=== PATIENT | male | born 1965 | race African-American/Black ===

== ENCOUNTER 2016-12-17 06:59 | Day surgery (SDC) | payer MEDICARE ==
[~2016-12-17] VITALS: Ht 175.3 cm; Wt 111.5 kg
[2016-12-17 07:30] VITALS: BP 129/84; PULSE 72; RESP 18; TEMP 97.7; O2SAT 97
[2016-12-17] MEDS ORDERED: CHLORHEXIDINE GLUCONATE 2 % 1 PACK (2 CLOTHS) TOPICAL PRN (07:30)
[2016-12-17] MEDS ORDERED: LACTATED RINGER'S 1000 ML IV PRN (07:30)
[2016-12-17] MEDS ORDERED: INSULIN HUMAN REGULAR 1,000 UNITS/10 ML VIAL SQ PRN (07:30)
[2016-12-17] MEDS ORDERED: POVIDONE IODINE 5% (ANTISEPSIS KIT) 4 APPLICATIONS EACH NARE PRN (07:30)
[2016-12-17] MEDS ORDERED: LORazepam 1 MG TAB SL SCH (07:30)
[2016-12-17] MEDS ORDERED: SODIUM CHLORID 0.9% 500 ML IV PRN (07:30)
[2016-12-17] MEDS ORDERED: SODIUM CHLORID 0.9% 500 ML INJ 500 ML IV SCH (07:30)
[2016-12-17] MEDS ORDERED: METOPROLOL TARTRATE 25 MG TAB PO PRN (07:30)
[2016-12-17 08:00] LABS: AUTOMATED NEUTROPHIL # 10.7 TH/MM3 (1.8-7.7); BASOPHIL % 0.2 % (0.0-2.0); EOSINOPHIL # 0.1 TH/MM3 (0-0.4); EOSINOPHIL % 0.7 % (0.0-4.0); HEMATOCRIT 38.2 % (39.0-51.0); HEMO FLAGS DIFF FINAL; LYMPH % 14.7 % (9.0-44.0); LYMPHOCYTE # 2.1 TH/MM3 (1.0-4.8); MEAN CELL VOLUME 91.3 FL (80.0-100.0); MEAN CORPUSCULAR HEMOGLOBIN 30.2 PG (27.0-34.0); MONO % 8.7 % (0.0-8.0); NEUT % 75.7 % (16.0-70.0); PLATELET COUNT 342 TH/MM3 (150-450); RED BLOOD COUNT 4.18 MIL/MM3 (4.50-5.90); RED CELL DISTRIBUTION WIDTH 14.7 % (11.6-17.2); WHITE BLOOD COUNT 14.2 TH/MM3 (4.0-11.0)
[2016-12-17] MEDS ORDERED: MECL-62 PO (08:10)
[2016-12-17] MEDS ORDERED: PULM90IN INH (08:10)
[2016-12-17] MEDS ORDERED: NITR0.4S SL (08:10)
[2016-12-17] MEDS ORDERED: AMLO5TAB2 PO (08:10)
[2016-12-17] MEDS ORDERED: ALBU1AER5 INH (08:10)
[2016-12-17] MEDS ORDERED: SODI3NEB NEB (08:10)
[2016-12-17] MEDS ORDERED: MONT10TA4 PO (08:10)
[2016-12-17] MEDS ORDERED: OXYB10TA PO (08:10)
[2016-12-17] MEDS ORDERED: VERA1TAB17 PO (08:10)
[2016-12-17] MEDS ORDERED: AZEL137S EACH NARE (08:10)
[2016-12-17] MEDS ORDERED: RANE1000 PO (08:10)
[2016-12-17] MEDS ORDERED: PRED50 PO (08:10)
[2016-12-17] MEDS ORDERED: ISOS30TA3 PO (08:10)
[2016-12-17] MEDS ORDERED: SPIRCAP INH (08:10)
[2016-12-17] MEDS ORDERED: ATOR20TA15 PO (08:10)
[2016-12-17] MEDS ORDERED: METO25TA6 PO (08:10)
[2016-12-17] MEDS ORDERED: VENTAER INH (08:10)
[2016-12-17] MEDS ORDERED: METF750T PO (08:10)
[2016-12-17] MEDS ORDERED: OMEP20TA PO (08:10)
[2016-12-17 08:21] LABS: INTERNATIONAL NORMALIZED RATIO 0.9 RATIO; PROTHROMBIN TIME - PATIENT 10.3 SEC (9.8-11.6)
[2016-12-17 08:29] LABS: BICARBONATE 27.3 MEQ/L (21.0-32.0); POTASSIUM 4.1 MEQ/L (3.5-5.1)
[2016-12-17] MEDS ORDERED: MIDAZOLAM HCL 2 MG/2 ML VIAL IV ONE (12:00)
[2016-12-17] MEDS ORDERED: PROPOFOL 200 MG/20 ML AMP IV ONE (12:00)
[2016-12-17] MEDS ORDERED: HEPARIN-NS/PF INJ 1,000 ML ONE (12:08)
[2016-12-17] MEDS ORDERED: ceFAZolin INJ 1,000 MG VIAL ONE (12:10)
[2016-12-17] MEDS ORDERED: LIDOCAINE HCL 2% 50 ML VIAL ONE (12:10)
[2016-12-17] MEDS ORDERED: VANCOMYCIN HCL 1000 MG VIAL ONE (12:10)
[2016-12-17] MEDS ORDERED: SODIUM CHLOR 0.9% 250 ML INJ 250 ML ONE (12:10)
[2016-12-17] MEDS ORDERED: VANCOMYCIN 500 MG VIAL ONE (12:10)
[2016-12-17] MEDS ORDERED: DO NOT ADM ANY ANTICOAGULANT DRUGS PRN (13:00)
--- NOTE | 2016-12-17 13:14 | CATHPROC ---
[place] [facility] Report Study Information Study Number Admission Scheduled Start Study Start [id number] Dec 17 2016 6:59AM 12/17/2016 Dec 17 2016 8:24AM [place] Service Electrophysiology Study Admit Source Facility Department Other [facility] - Machine Plug Shaper Physician and Clinical Staff Initial Emilia Cordero Sales Representative Cash Registers Idalmis Potter,RT(R) TECH2 Other Anesthesia, RESET MERCHANDISER Recorder Michelle Vásquez,RN Recorder Qing Heath RN Equipment Time Academic Affairs Manager Description Size Mfg Part Number Used/Scraped [id number] 12:18 [employer] PACK, CCL CUSTOM * Used *[id number] 12:18 [employer] PACER PEÑA, LIMB * 2530 *[id number] Used [id number] 12:18 [employer],WARM AIR CCL * Used *[id number] 12:16 [employer] CATHETER, JSN, QUAD FR 5 Used *[id number] 12:16 [employer] CAT[employer], JSN, QUAD FR 5 Used *[id number] 12:16 [employer] CAT[employer], JSN, QUAD FR 5 Used *[id number] 12:16 [employer] CATHETER, JSN, QUAD FR 5 Used *[id number] 12:16 [employer] SHEATH, EPS, FR5 FAST CATH FR 5 Used *[id number] 12:16 [employer] SHE[employer], EPS, FR5 FAST CATH FR 5 Used *[id number] 12:17 [employer] SHE[employer], EPS, FR5 FAST CATH FR 5 Used *[id number] 12:17 [employer], EPS, FR6 FAST CATH FR 6 Used *[id number] History: Allergies Allergy Reaction iodine aspirin soap ibuprofen lactose povidone-iodine onion gluten shellfish derived Medication Medication Total Dose (Bolus/Oral) Medication Total Dosage/Unit 1% XYLOCAINE 20 mL Medications (Bolus/Oral) Medication Time Given Dosage/Unit Administered By Reason 1% XYLOCAINE 12/17/2016 12:37:40 PM 20 mL Emilia Jones 20 mL 1% XYLOCAINE given in lab by Emilia Jones in Right Groin via Subcutaneous. Initial Case Assessment Cardiovascular HR Rhythm NIBP Chest Pain 67 sr 121/82 0 Edema Present Skin color Skin None Normal Warm Dry Neurological State Oriented to time-place- Alert Moves all extremities person Respiration - General Respiration Rate SpO2 (%) (B/min) 18 99 Final Case Assessment Cardiovascular HR Rhythm NIBP Chest Pain 67 SR 105/74 0 Edema Present Skin color Skin None Normal Warm Dry Circulatory - Right Pulses Dorsalis Pedis 2 Scale (0,1,2,3,4,d) Circulatory - Left Pulses Dorsalis Pedis 2 Scale (0,1,2,3,4,d) Neurological State Oriented to time-place- Alert Moves all extremities person Respiration - General Respiration Rate SpO2 (%) (B/min) 18 100 Chronological Log Time Study Chronological Log 12:00:00 Patient arrived via Bed. 12:00:55 Anesthesia at bedside. Assumes care of patient. see records for meds and vitals during proc edure 12:01:00 Patient Name, D.O.B, / Armband Verified By R.N. 12:05:00 Verbal Stimulation=2 Physical Stimulation=2 Airway=2 Respiration=2 TOTAL=8. (0=absent, 1=li mited, 2=present) 12:13:24 Patient has been NPO for More than 6Hrs. 12:13:26 Skin Breakdown- none per patient 12:13:34 Patient Warmer Placed on the Table. 12:13:34 Disposable Defibrillator Pads Placed On Patient. 12:13:37 Jigna Prominences Protected 12:13:53 A # 20 IV was noted in the Antecubital (right). Grade = 0 12:14:01 A # 20 IV was noted in the Antecubital (left). Grade = 0 12:14:12 History and physical on the chart or being dictated. Assessment: Initial Case, HR=67 BPM, Rhythm=sr, VHLT=682/82 mmhg, Chest Pain=0, Edema=None, Col or=Normal, Skin = Warm, Dry 12:14:13 Neurological: State=Alert, Ox3, العلي Respiration: Resp=18 B/min, SpO2=99 % 12:15:51 Table restraints applied according to hospital policy 12:15:54 Bilateral groins prepped with 2% chlorhexidine, and draped after a 3 minute waiting time. 12:27:27 Reference ECG taken Time Out. Correct patient, procedure, procedure equipment, site and side verified with physicia n present. Time 12:34:00 concurred by MD, individual staff and RESET MERCHANDISER. Time Out #2 - Consents verified, patient in correct position, all results are labled and displa yed, safety precautions 12:34:30 taken, antibiotics administered. Time out concurred by MD, individual staff and RESET MERCHANDISER in procedu re 12:35:39 Case Start 12:37:40 20 mL 1% XYLOCAINE given in lab by Emilia Jones in Right Groin via Subcutaneous. 12:37:49 Vascular access was obtained in the Fem Vein (right). 12:37:52 Vascular access was obtained in the Fem Vein (right). 12:37:53 Vascular access was obtained in the Fem Vein (right). 12:37:53 Vascular access was obtained in the Fem Vein (right). 12:37:56 A SHEATH, EPS, FR5 FAST CATH FR 5 was advanced into the Fem Art (right) using the Modified Seldinger technique. 12:38:06 A SHEATH, EPS, FR5 FAST CATH FR 5 was advanced into the Fem Art (right) using the Modified Seldinger technique. 12:38:08 A SHEATH, EPS, FR5 FAST CATH FR 5 was advanced into the Fem Art (right) using the Modified Seldinger technique. 12:38:11 A SHEATH, EPS, FR6 FAST CATH FR 6 was advanced into the Fem Art (right) using the Modified Seldinger technique. A CATHETER, JSN, QUAD FR 5 was advanced vis Fem Vein (right) and placed in the CS. Placement wa s visually 12:42:41 confirmed under fluoroscopy. A CATHETER, JSN, QUAD FR 5 was advanced vis Fem Vein (right) and placed in the HIS. Placement w as visually 12:43:01 confirmed under fluoroscopy. A CATHETER, JSN, QUAD FR 5 was advanced vis Fem Vein (right) and placed in the HRA. Placement w as visually 12:43:04 confirmed under fluoroscopy. A CATHETER, JSN, QUAD FR 5 was advanced vis Fem Vein (right) and placed in the RVA. Placement w as visually 12:43:10 confirmed under fluoroscopy. 13:00:00 Case End 13:02:57 Catheter(s) removed without difficulty 13:03:09 Sheath removed; pressure applied to access site. BY IDALMIS 13:03:12 Sterile dressing applied to site 13:03:13 No case complications noted. 13:03:19 Bedside Report will be given. Assessment: Final Case, HR=67 BPM, Rhythm=SR, EOKZ=969/74 mmhg, Chest Pain=0, Edema=None, Color =Normal, Skin = Warm, Dry Right Pulses: Jerry Ped=2 13:10:02 Left Pulses: Jerry Ped=2 Neurological: State=Alert, Ox3, العلي Respiration: Resp=18 B/min, NbE8=660 % 13:12:28 DOCU called. Spoke to DREW 13:45:54 EP STUDY IN PROGRESS End Study - Contrast Media Used In Study Contrast Total Opened (mL) Total Used (mL) Total Wasted (mL) Unspecified 0 0 0 End Study - Radiation Exposure Fluoro Time (minutes) 1.1 End Study - Patient Disposition Complications Transferred To Interventional Outcome No Telemetry Bed successful
[2016-12-17] MEDS ORDERED: oxyCODONE/ACETAMINOPHEN 5 MG/325 MG TAB PO PRN ×2 (13:15→14:00)
[2016-12-17] MEDS ORDERED: ATROPINE SULFATE 1 MG/ML VIAL IV PUSH PRN (13:15)
[2016-12-17] MEDS ORDERED: METOCLOPRAMIDE HCL 10 MG/2 ML VIAL IV PUSH PRN (13:15)
[2016-12-17] MEDS ORDERED: LIDOCAINE HCL 1% 50 ML VIAL INFIL PRN (14:00)
[2016-12-17] MEDS ORDERED: BACITRACIN OINT 0.9 GM PKT TOP ONE (14:00)
[2016-12-17] MEDS ORDERED: ONDANSETRON HCL 4 MG/2 ML VIAL IV PUSH PRN (14:00)
[2016-12-17] MEDS ORDERED: SODIUM CHLOR 0.9% 250 ML INJ 250 ML IV PRN (14:00)
[2016-12-17] MEDS ORDERED: LORazepam 2 MG/ML VIAL IV PUSH PRN (14:00)
--- NOTE | 2016-12-17 14:47 | MA ---
cc: LIDIA JONES M.D. DATE: 12/17/2016 PROCEDURE Electrophysiology study. INDICATION Mr. Us is a 61-year-old -[place] gentleman with history of coronary artery disease, high blood pressure, permanent pacemaker implanted, episode of nonsustained ventricular tachycardia, negative stress study, normal EF, referred for electrophysiology study. The risks, the nature and the benefit of the procedure were clearly stated to him. The risks include pneumothorax, cardiac perforation, stroke and even . He understood and agreed to proceed. DETAILS OF PROCEDURE After written informed consent was obtained, the patient was brought to the EP lab where he was prepped and draped in the usual sterile fashion. Conscious sedation was initiated and maintained throughout the procedure by the anesthesiologist. Once sedation was verified, the right inguinal area was anesthetized with 2% Xylocaine. Using modified Seldinger technique, the right femoral vein was cannulated on four occasions and four guidewires were advanced. Over the wires 3, 5 and 6 English Hemaquets were advanced. Then under fluoroscopic guidance through the 5 and 6 English Hemaquets, four 5 English Amanda curved quadripolar electrophysiology catheters were advanced and positioned on the His, upper right atrium, coronary sinus and right ventricular apex. Basic intervals were measured. They were within normal limits. At this point atrial pacing protocol was performed. Wenckebach was high around 500 milliseconds. Then ventricular pacing protocol was performed. Ventricular pacing protocol consisted of incremental ventricular pacing as well as programmed stimulation with 110 cycle length and up to three extrastimuli delivered. No tachyarrhythmia was induced. Then Isuprel infusion was initiated. Atrial and ventricular pacing protocol was repeated again. No tachyarrhythmia was induced. Post Isuprel no tachyarrhythmia was induced. At that point the procedure was complete. All catheters and Hemaquets were removed. The dual-chamber permanent pacemaker was programmed at the beginning of the case to VVI 40. He was reprogrammed to DDD 60. The patient is going to be transferred to the recovery room. No incident report. The patient tolerated the procedure. Blood loss minimal. FINDINGS 1. Electrocardiogram: At baseline the patient was in sinus. Post-procedure electrocardiogram was unchanged. 2. Basic intervals: Basic cycle length was around 890 milliseconds. AH was at 78 and HV was around 50 milliseconds. 3. Atrial pacing protocol: Wenckebach of the node at baseline was around 520 milliseconds. 4. Ventricular pacing protocol. There was VA conduction. No tachyarrhythmia was induced. CONCLUSIONS 1. Negative electrophysiology study for supraventricular tachyarrhythmia. 2. Successful pacemaker reprogramming. COMMENT/RECOMMENDATION The patient is going to be transferred to the telemetry unit. He will be observed. He is already on a beta thomas and can be discharged home and followed by Dr. Hatch. Lidia Jones MD HS/BT /1:11 PM /2:30 PM
--- NOTE | 2016-12-17 17:28 | EKG ---
Date Performed: 12/17/2016 Time Performed: 07:59:32 PTAGE: 51 years EKG: Sinus rhythm Normal ECG NO PREVIOUS TRACING DOCTOR: Benedict Wheeler Interpretating Date/Time 12/17/2016 17:27:03
== END 2016-12-17 16:00 | disposition home or self-care (01) ==
LOC: HDOC 06:59 → HDIC 07:00 → HDOC 16:00
PROVIDERS: ATTEND Internal Medicine Interventional Cardiology
DX: I47.2 Ventricular tachycardia (principal); I49.5 Sick sinus syndrome; I25.119 Atherosclerotic heart disease of native coronary artery with unspecified angina pectoris; I10 Essential (primary) hypertension; R06.00 Dyspnea, unspecified; E11.9 Type 2 diabetes mellitus without complications; G47.30 Sleep apnea, unspecified; J45.909 Unspecified asthma, uncomplicated; R55 Syncope and collapse; Z01.818 Encounter for other preprocedural examination; Z01.810 Encounter for preprocedural cardiovascular examination; Z95.0 Presence of cardiac pacemaker
CPT/HCPCS: 00537; 80048; 85025; 85610; 85730; 93005; 93620; 93623; C1730; J0690; J1644; J3370; J7050; J2250; J3010